=== PATIENT | male | born 1945 | race Caucasian/White ===

== ENCOUNTER 2020-05-08 06:44 | Day surgery (SDC) | payer MEDICARE ==
[2020-05-08] MEDS ORDERED: LACTATED RINGERS 1,000 ML IV ONE ×2 (07:01→08:58)
[2020-05-08 07:16] VITALS: TEMP 98.6
[2020-05-08] MEDS ORDERED: ONDANSETRON 4 MG/2 ML VIAL IVP ONE (07:34)
[2020-05-08] MEDS ORDERED: HEPARIN SODIUM,PORCINE 5,000 UNIT/ML 1 ML VIAL SQ ONE (07:35)
[2020-05-08] MEDS ORDERED: DEXAMETHASONE SOD PHOS (MDV) 100 MG/10 ML VIAL IVP ONE (07:35)
[2020-05-08] MEDS ORDERED: MIDAZOLAM 2 MG/2 ML VIAL IVP ONE (07:52)
[2020-05-08] MEDS ORDERED: PROPOFOL 10 MG/ML 20 ML VIAL IV ONE (07:56)
[2020-05-08] MEDS ORDERED: LIDOCAINE 1% INJ 10MG/ML (20 ML MDV) ONE (07:56)
[2020-05-08] MEDS ORDERED: SUCCINYLCHOLINE CHLORIDE 100 MG/5 ML SYR IV ONE (07:56)
[2020-05-08] MEDS ORDERED: ePHEDrine SULFATE/0.9% NACL/PF 50 MG/5 ML SYRINGE IV ONE (07:56)
[2020-05-08] MEDS ORDERED: ONDANSETRON 4 MG/2 ML VIAL ONE (07:56)
[2020-05-08] MEDS ORDERED: fentaNYL (PF) 50 MCG/ML 2 ML AMP ONE (07:56)
[2020-05-08] MEDS ORDERED: PHENYLEPHRINE-0.9% NACL SYG 1 MG/10 ML SYRINGE ONE (07:56)
[2020-05-08] MEDS ORDERED: ROPIVACAINE 5 MG/ML 30 ML VIAL ONE (07:56)
[2020-05-08] MEDS ORDERED: BUPIVACAINE (PF) 0.25% 30 ML VIAL SQ ONE (09:16)
--- NOTE | 2020-05-08 09:45 | P.ANPRN ---
Procedure Note - Anesthesia - Nerve Block Performed Left Transversus Abdominis Single Time Out Performed: Yes (751) Date of Procedure: 05/08/20 Procedure Start Time: 07:52 Procedure Stop Time: 07:57 Location of Patient: PreOp Indication: Acute Post-Operative Pain, Requested by Surgeon Specifically requested for management of pain by DrImelda: Estiven Amaro Sedation Type: Sedate with meaningful contact maintained Preparation: Sterile Prep Position: Supine Catheter: None Needle Types: Pajunk Needle Gauge: 21 Ultrasound used to visualize needle placement: Yes Ultrasound used to observe medication spread: Yes Injectate: 0.5% Ropivacaine (see comment for volume) (30cc) Blood Aspirated: No Pain Paresthesia on Injection Noted: No Resistance on Injection: Normal Image Stored and Saved: Yes Events: Uneventful and Well Tolerated
[2020-05-08] MEDS ORDERED: HYDROcodone/APAP 5-325MG 1 EACH TAB PO PRN (09:50)
[2020-05-08] MEDS ORDERED: NALOXONE 0.4 MG/ML 1 ML VIAL IV PRN (09:50)
--- NOTE | 2020-05-08 09:54 | P.OP ---
Date of Procedure: 05/08/20 Procedure(s) Performed: PREOPERATIVE DIAGNOSIS: Left inguinal hernia POSTOPERATIVE DIAGNOSIS: Same PROCEDURE: Repair left femoral hernia with mesh SURGEON: Prem EBL: Minimal ANESTHESIA: General COMPLICATIONS: None OPERATIVE PROCEDURE: The patient is brought and placed on the operating table in the supine position. The patient was placed under general anesthesia at that time. The patient's previous incision was re-incised using a scalpel. The subcutaneous tissues were dissected using electro cautery. A superficial vein was divided after being ligated with 3-0 silk ties. The external oblique was incised with a scalpel. This was lengthened using a Metzenbaum scissors. The spermatic cord structures were encircled with a [place] drain and dissected carefully. The patient had an indirect hernia present. There was some induration at the apex of the hernia sac within the cord. This was carefully dissected away from the surrounding cord structures. This was dissected all the way to the internal inguinal ring where it was ligated using 2 separate 0 silk stick tie sutures. The patient had weakness of the transversalis fascia at Hesselbach's triangle. A discrete defect/hernia was not seen however. I chose to use the Prolene hernia system to help strengthen this weekend transversalis layer. The medium Prolene hernia system was chosen. The inner circular portion of the mesh was placed within the pre-peritoneal space and flattened out appropriately. The outer oval portion of mesh was slit and wrapped around the spermatic cord and sutured back to itself. The mesh was then sutured to the pubic tubercle, the folding edge of the inguinal ligament, and the conjoined tendon. The external oblique was then reapproximated using a running 2-0 Vicryl suture. The subcutaneous tissues were reapproximated using interrupted 3-0 Vicryl sutures and the skin using a running 4-0 Monocryl stitch. Skin glue and sterile dressings then applied. At the end of the procedure the sponge needle and counts were all correct. DISPOSITION: Stable to recovery room
[2020-05-08 10:01] VITALS: RESP 16
[2020-05-08 11:27] VITALS: BP 131/75; PULSE 87
--- NOTE | 2020-05-11 08:09 | P.GSHP ---
History of Present Illness H&P Date: 05/05/20 Chief Complaint: Left inguinal hernia 74-year-old male seen in the office earlier this year with complaints of a bulge left groin. Mild pain at times. No nausea or vomiting. No change in bowel habits. Patient with history of previous robotic prostatectomy 10 years ago. Past Medical History Past Medical History: Cancer, Hyperlipidemia, Prostate Disorder Additional Past Medical History / Comment(s): Prostate cancer 2010. Lt inguinal hernia. History of Any Multi-Drug Resistant Organisms: None Reported Past Surgical History: Prostate Surgery, Tonsillectomy Additional Past Surgical History / Comment(s): Robotic Radical Prostate surg. Past Anesthesia/Blood Transfusion Reactions: Family History of Problems w/ Anesthesia, Motion Sickness, Postoperative Nausea & Vomiting (PONV) Additional Past Anesthesia/Blood Transfusion Reaction / Comment(s): Father had extended confusion with anesthesia. Smoking Status: Never smoker - Past Family History Brother(s) Family Medical History: Cancer Additional Family Medical History / Comment(s): Wilton cell cancer Medications and Allergies Home Medications Medication Instructions Recorded Confirmed Type Atorvastatin [Lipitor] 20 mg PO DAILY 05/04/20 05/08/20 History Allergies Allergy/AdvReac Type Severity Reaction Status Date / Time No Known Allergies Allergy Verified 05/08/20 07:07 Surgical - Exam Physical exam: General: Well-developed, well-nourished HEENT: Normocephalic, sclerae nonicteric Abdomen: Nontender, nondistended, moderate sized reducible left inguinal hernia, possible small reducible right hernia, small reducible umbilical hernia Extremities: No edema Neuro: Alert and oriented Assessment and Plan (1) Left inguinal hernia Narrative/Plan: 74-year-old male with symptomatic moderate sized left inguinal hernia. Options reviewed. Both laparoscopic and open approaches were discussed. Given the previous preperitoneal dissection will proceed with open repair left inguinal hernia with mesh at this time. Risks of bleeding, infection, recurrence, bladder and bowel injury, numbness, nerve injury were discussed with the patient. The patient understands and wishes to proceed. Status: Acute Code(s): K40.90 - UNIL INGUINAL HERNIA, W/O OBST OR GANGR, NOT SPCF RECUR SNOMED Code(s): 479034105
== END 2020-05-08 11:27 | disposition home or self-care (01) ==
LOC: OR 06:44
PROVIDERS: ATTEND Surgery
DX: K40.90 Unilateral inguinal hernia, without obstruction or gangrene, not specified as recurrent (principal); E78.5 Hyperlipidemia, unspecified; Z79.899 Other long term (current) drug therapy
CPT/HCPCS: 49505; 64486; 88302; C1781; J2250; J1644; J0690; J2405; J2001; J3010; J1100; J2795; J2370; J0330; J2704

== ENCOUNTER → 2021-04-10 | Outpatient (CLI) | payer MEDICARE ==
[2021-04-10 11:08] LABS: HCT 41.5 % (39.0-53.0); HGB 14.2 gm/dL (13.0-17.5); MCH 32.2 pg (25.0-35.0); MCHC 34.2 g/dL (31.0-37.0); MCV 94.1 fL (80.0-100.0); Mean Platelet Volume 7.3; Platelet Count 296 k/uL (150-450); RBC 4.42 m/uL (4.30-5.90); RDW 13.3 % (11.5-15.5); WBC 7.2 k/uL (3.8-10.6)
[2021-04-10 11:35] LABS: Partial Thromboplastin Time 23.6 sec (22.0-30.0); Prothrombin Time 10.6 sec (9.0-12.0)
[2021-04-10 11:41] LABS: Appearance,Urine Clear (Clear); Bilirubin,Urine Negative (Negative); Blood,Urine Negative (Negative); Color,Urine Yellow; Glucose,Urine (UA) Negative (Negative); Ketones,Urine Negative (Negative); Leukocyte Esterase,Urine Trace (Negative); Mucus,Urine Rare /hpf; Nitrite,Urine Negative (Negative); PH, Urine 6.5 (5.0-8.0); Protein,Urine Negative (Negative); RBC,Urine <1 /hpf (0-5); Specific Gravity,Urine 1.024 (1.001-1.035); Urobilinogen,Urine <2.0 mg/dL (<2.0); WBC,Urine <1 /hpf (0-5)
[2021-04-10 12:23] LABS: Albumin 4.8 g/dL (3.5-5.0); Calcium 10.6 mg/dL (8.4-10.2); Potassium 5.4 mmol/L (3.5-5.1); Total Bilirubin 0.6 mg/dL (0.2-1.3); Total Protein 7.2 g/dL (6.3-8.2)
== END | disposition home or self-care (01) ==
LOC: LABPAT 10:17
PROVIDERS: ATTEND Orthopaedic Surgery Sports Medicine
DX: Z01.810 Encounter for preprocedural cardiovascular examination (principal); Z01.812 Encounter for preprocedural laboratory examination
CPT/HCPCS: 36415; 80053; 81001; 85027; 85610; 85730; 87070

== ENCOUNTER 2021-04-26 05:31 | Day surgery (SDC) | payer MEDICARE ==
[2021-04-23 16:05] VITALS: BMI 25.7
[~2021-04-26 05:31] MED LIST: ACETAMINOPHEN TAB 500 MG TAB PO PRN; GABAPENTIN 300 MG CAP PO PRN; LACTATED RINGERS 1,000 ML IV SCH; MELOXICAM 7.5 MG TAB PO PRN; ONDANSETRON 4 MG/2 ML VIAL IVP PRN; ROPIVACAINE/EPI/CLONIDINE/KET 50 ML SYRINGE MISCELLANE PRN; TRANEXAMIC ACID 1,000 MG in SODIUM CHLORIDE 0.9% 100 ML IVPB PRN
[2021-04-26] MEDS ORDERED: LACTATED RINGERS 1,000 ML IV ONE ×2 (05:54→09:07)
[2021-04-26] MEDS ORDERED: DEXAMETHASONE SOD PHOSPHATE 4 MG/ML 1 ML VIAL IVP ONE (06:04)
[2021-04-26] MEDS ORDERED: MIDAZOLAM 2 MG/2 ML VIAL IV PRN (06:30)
[2021-04-26] MEDS ORDERED: MIDAZOLAM 2 MG/2 ML VIAL IVP ONE (06:30)
[2021-04-26] MEDS ORDERED: HYDROmorphone 0.5 MG/0.5 ML SYRINGE IVP PRN ×3 (07:00→09:45)
--- NOTE | 2021-04-26 07:04 | P.ANPRN ---
Procedure Note - Anesthesia - Nerve Block Performed Left Adductor Canal Infusion Time Out Performed: Yes Date of Procedure: 04/26/21 Procedure Start Time: 08:33 Procedure Stop Time: 06:40 Location of Patient: PreOp Indication: Acute Post-Operative Pain, Requested by Surgeon Sedation Type: Sedate with meaningful contact maintained Preparation: Sterile Prep Position: Supine Catheter: Indwelling Needle Types: Pajunk Needle Gauge: 21 Ultrasound used to visualize needle placement: Yes Ultrasound used to observe medication spread: Yes Blood Aspirated: No Pain Paresthesia on Injection Noted: No Resistance on Injection: Normal Image Stored and Saved: Yes Events: Uneventful and Well Tolerated (ropi .5% 20cc)
--- NOTE | 2021-04-26 07:05 | P.ANPRN ---
Procedure Note - Anesthesia - Nerve Block Performed Left iPack Single Time Out Performed: Yes Date of Procedure: 04/26/21 Procedure Start Time: 06:41 Procedure Stop Time: 06:46 Location of Patient: PreOp Indication: Acute Post-Operative Pain, Requested by Surgeon Sedation Type: Sedate with meaningful contact maintained Preparation: Sterile Prep Position: Supine Needle Types: Pajunk Needle Gauge: 21 Ultrasound used to visualize needle placement: Yes Ultrasound used to observe medication spread: Yes Blood Aspirated: No Pain Paresthesia on Injection Noted: No Resistance on Injection: Normal Image Stored and Saved: Yes Events: Uneventful and Well Tolerated (Ropivacaine 0.5% 25 mL plus dexamethasone 4 mg)
[2021-04-26] MEDS ORDERED: SODIUM CHLORIDE 0.9% 100 ML BAG ONE (07:35)
[2021-04-26] MEDS ORDERED: PROPOFOL 10 MG/ML 20 ML VIAL IV ONE (07:35)
[2021-04-26] MEDS ORDERED: MIDAZOLAM 2 MG/2 ML VIAL ONE (07:35)
[2021-04-26] MEDS ORDERED: fentaNYL (PF) 50 MCG/ML 2 ML AMP ONE (07:35)
[2021-04-26] MEDS ORDERED: PHENYLEPHRINE-0.9% NACL SYG 1,000 MCG/10 ML SYRINGE ONE (07:35)
[2021-04-26] MEDS ORDERED: TRANEXAMIC ACID 1,000 MG/10 ML VIAL ONE (07:35)
[2021-04-26] MEDS ORDERED: ROPIVACAINE 5 MG/ML 30 ML VIAL ONE (07:35)
[2021-04-26] MEDS ORDERED: DEXAMETHASONE SOD PHOSPHATE 4 MG/ML 1 ML VIAL ONE (07:35)
[2021-04-26] MEDS ORDERED: ceFAZolin 3,000 MG in SODIUM CHLORIDE 0.9% IRRIGATIO 3,000 ML IRRIGATION ONE (08:08)
[2021-04-26] MEDS ORDERED: ROPIVACAINE 0.2%-NS ON-Q PUMP 1,090 MG, EMPTY PAIN BALL 1 EACH MISCELLANE PRN (09:34)
[2021-04-26] MEDS ORDERED: bisacodyL 10 MG SUPP RECTAL PRN (09:45)
[2021-04-26] MEDS ORDERED: traMADol 50 MG TAB PO PRN (09:45)
[2021-04-26] MEDS ORDERED: diazePAM 5 MG TAB PO PRN (09:45)
[2021-04-26] MEDS ORDERED: HYDROmorphone 0.2 MG/1 ML SYRINGE IVP PRN (09:45)
[2021-04-26] MEDS ORDERED: MAGNESIUM HYDROXIDE 2,400 MG/10 ML CUP PO PRN (09:45)
[2021-04-26] MEDS ORDERED: TEMAZEPAM 15 MG CAP PO PRN (09:45)
[2021-04-26] MEDS ORDERED: NA PHOS,M-B/NA PHOS,DI-BA 133 ML ENEMA RECTAL PRN (09:45)
[2021-04-26] MEDS ORDERED: NALOXONE 0.4 MG/ML 1 ML VIAL IV PRN (09:45)
[2021-04-26] MEDS ORDERED: ONDANSETRON 4 MG/2 ML VIAL IVP PRN (09:45)
[2021-04-26] MEDS ORDERED: ACETAMINOPHEN TAB 325 MG TAB PO PRN (09:45)
--- NOTE | 2021-04-26 10:18 | XR ---
EXAMINATION TYPE: XR knee limited LT DATE OF EXAM: 04/26/2021 CLINICAL HISTORY: Postoperative evaluation Two views of the left knee are submitted. Identified are changes of total knee arthroplasty with fem oral and tibial components appearing well seated. Postsurgical soft tissue changes are noted. Align ment is anatomic.
--- NOTE | 2021-04-26 10:28 | OP ---
OPERATIVE REPORT DATE OF PROCEDURE: 04/26/2021 SURGEON: Hank Chicas M.D. ASSISTANTS: 1. Guido Stallings D.O. 2. Emiliano Marie PA-C. PREOPERATIVE DIAGNOSIS: Left knee osteoarthrosis. POSTOPERATIVE DIAGNOSIS: Left knee osteoarthrosis. OPERATION: Left total knee arthroplasty. ANESTHESIA: Spinal with sedation. ESTIMATED BLOOD LOSS: 100 mL. TOURNIQUET: Tourniquet time was 54 minutes at 250 mmHg. COMPLICATIONS: None apparent. DRAINS: None. DISPOSITION: Post-Anesthesia Care Unit. Mr. Villasenor is a 75-year-old male with longstanding history of left knee pain. History and physical examination are consistent with advanced left knee osteoarthrosis. He has been through significant nonoperative management up to this point. Further treatment options were discussed and he has decided to go forward with left total knee arthroplasty. The risks of the procedure were discussed with him in detail. These risks included but were not limited to risk of infection, nerve damage, bleeding, pain, and a small risk of deep vein thrombosis which could lead to fatal pulmonary embolism. There is also risk of loosening of the implant which could require revision operation. The patient understands these risks. All of his questions were answered to his satisfaction. Appropriate informed consent was obtained. DESCRIPTION OF THE PROCEDURE: The patient was identified in the preoperative holding area. Surgical site was marked by both the patient and myself. He was given 2 grams of Ancef IV for prophylactic purposes. He was then transferred to the operative suite. He was placed supine on the operating room table. Spinal anesthetic was then administered and dosed per the anesthesia department without apparent complication. Examination under anesthesia was then performed. The patient was 2-3 degrees shy of full extension. He had 100 degrees of flexion, and the medial collateral ligament, lateral collateral ligament and posterior cruciate ligaments were stable. Tourniquet was then placed high on the left upper thigh, well padded in preparation for surgery. The patient's left lower extremity was then prepped and draped in usual sterile fashion. Standard surgical pause was undertaken to ensure that we were operating on the correct site and that appropriate preoperative antibiotics had been given. All staff in the room were in agreement and we proceeded. The outlines of the patella were marked with a surgical pen. A planned 12 cm vertical incision centered over the patella was marked with a surgical pen. The leg was then exsanguinated with an Esmarch dressing. The knee was then flexed and the tourniquet was inflated to 250 mmHg. The total tourniquet time for the procedure was 54 minutes. Incision was then made with a 10 blade scalpel. Dissection was carried down sharply to the overlying fascia. Great care was taken to minimize the skin flaps. The knee was then exposed using a standard medial parapatellar approach. A small cuff of quadriceps tendon was then left for suturing. He was in a bit of varus preoperatively. A standard medial release was then made. The superficial medial collateral ligament was dissected off the bone around to the posterior aspect of the proximal tibia. The medial meniscus was then excised as well. The lateral meniscus was also released anteriorly. The leg was then externally rotated. The patella was everted. The knee was flexed. Retractors were then placed to protect the collateral ligaments. I then proceeded to remove the infrapatellar fat pad. This was excised sharply tangentially with fibers of the patellar tendon. I then proceeded to remove the peripheral osteophytes. This was done with a rongeur. I then proceeded with the distal femoral resection. He did have near-full extension. A planned 9 mm resection was then done. Femoral canal was then entered in the midline of the femur approximately 10 mm anterior to the origin of the posterior cruciate ligament. The chanda was then advanced down the center of the femur and placed intramedullary. Based on the preoperative radiographs, the angle between the anatomic and mechanical axis of the femur was approximately 4-5 degrees. The valgus angle of the distal femoral cutting guide was then set at 4 degrees for the left knee. The distal femoral cutting guide was then advanced over the intramedullary chanda. This was seated firmly against the femur. Then, as mentioned, I planned to take 9 mm off the distal femur. The cutting block was then secured onto the femur with pins. The jig was removed. The distal femoral cut was made through the slot of the block. The pins were then removed and the distal femoral cutting was removed. The accuracy of the distal femoral cuts was checked with 2 flat bars. I then proceeded with femoral sizing. The posterior referencing sizing guide was held firmly against the resected distal surface of the femur. The posterior condyles were resting on the posterior plane of the guide. The sizing guide was then placed onto the anterior femur. The size was measured as a size 10. I then assessed for femoral rotation. The plan was for 3 degrees of external rotation. Three degrees of external rotation was placed onto the jig. These holes were then marked. I then confirmed the rotation by 3 separate methods. This was done using epicondylar axis as well as [place] line and posterior referencing. It was deemed that the external rotation was proper. I then went forward with placing the femoral cutting block. This was placed over the previously placed pin holes. The [place] wing was then placed onto the anterior slots to ensure that we would not notch the anterior femur with the anterior femoral cut. I then proceeded with the anterior femoral cut. This was flush with the anterior cortex of the femur. The posterior cuts were made followed by the anterior chamfer cut, then the posterior chamfer cut. The cutting block was then removed. Throughout the resection, the collateral ligaments were protected with retractors. I then placed a trial size 10 femur. It fit very nicely medial to lateral and fit flush with the distal end of the femur. The drill holes were then made. I then proceed with the tibial cut. I planned for a cruciate-retaining knee. The guide was placed and set for varus, valgus and for slope. The height was set for an approximate 2 mm resection from the medial tibial plateau, which was the lower side. I was happy with the alignment and amount of resection. The cutting block was then pinned to the proximal tibia. The alignment chanda was removed. Proximal tibia was resected with a reciprocating saw. Again, this was done with retractors protecting the collateral ligaments as well as the posterior cruciate ligament. I then proceeded to evaluate the flexion and extension gaps. A 10 mm block was then placed. The flexion and extension gaps were equal. I then proceeded with resection of the posterior osteophytes. He had very minimal posterior osteophytes. This was done using a curved osteotome. This resected the posterior osteophytes, and posterior capsule stripping was done off the posterior aspect of the femur at this time. The osteophytes were then removed. I then proceeded with resection of the patella. The thickness of the patella was measured using the caliper. The thickness was 24 mm. The thickness of the anticipated patellar dome was taken into account. The resection was then performed and confirmed to be equal in 4 quadrants using a caliper. Approximately 14 mm of bone remained after resection. A 32 x 8.5 mm standard patellar trial was then placed. The holes were drilled and the trial was then placed. I then proceeded with sizing the tibial plate. A size F tibial plate fit very nicely. I then placed the trial femur, the tibial tray and the patellar button. A 10 mm trial tibial insert was also placed. The components fit very nicely. He had full extension and flexion. The extension and flexion gaps were equal and stable to both varus and valgus stress. The patella tracked appropriately. The tibial tray rotation was then marked with a Bovie. This was externally rotated properly. I then proceeded with tibial preparation. First femoral holes and removed the femoral component. The tibial tray was then set for proper external rotation as well as mediolateral placement onto the tibia. This was then pinned into place. I then proceeded with punching the keel. I then decided to proceed with cementing of all of our components. The knee was thoroughly irrigated with sterile saline solution via pulse lavage. The lateral geniculate artery was identified and cauterized. All blood was removed from around the bone of the tibia, femur and patella with pulse lavage. I then proceeded with cementing. Two packs of antibiotic bone cement were prepared on the back table by the surgical garment inspector. I then proceeded with cementing the tibia first. The cement was impacted into the keel as well as deeply seated in the bone. A second coat of cement was then placed. The tibia was then impacted into place. Excess cement was removed with [place]'s and jokers. I then proceeded with cementing the femoral component. The femoral component was also cemented using standard technique. Excess cement was removed. A 10 mm trial insert was then placed into the knee. It was brought into full extension with a constant axial load placed until the cement had hardened. The patellar component was then cemented. This was held firmly with a compressive device until the cement had dried. When the cement had dried, the knee was taken out of extension. All excess cement was removed from around the prosthesis. I then trialed the knee with a 10 mm insert. The flexion and extension gaps were appropriate. I then trialed with a 12 mm insert. Flexion and extension gaps felt much better. The knee was stable with a 12 mm insert. It came into full extension. I decided to go forward with a 12 mm cross-linked cruciate-retaining tibial insert. Polyethylene was then placed onto the tibial tray and locked into place. The knee was then reduced. The knee was again further irrigated with sterile saline solution with antibiotic added. The tourniquet was then deflated. Total tourniquet time for the procedure was 54 minutes at 250 mmHg. Final components were a Jann Persona size 10 cruciate-retaining femoral component, a size F tibial tray, a 12 mm medial-congruent cruciate-retaining polyethylene insert, and a 32 x 8.5 mm patella. I then proceeded with closure. Again, the knee was thoroughly irrigated. The quadriceps tendon and the medial retinaculum were reapproximated with #2 Ethibond suture. The extensor mechanism was then closed with a running #2 [place]ill suture. Subcutaneous tissues were closed with 2-0 Vicryl interrupted suture. The skin was closed with a running 3-0 Quill suture. Dermabond was applied to the incision. Sterile compressive dressing was then applied. All sponge and needle counts were deemed correct prior to closure. The patient tolerated the procedure without apparent complication. He was transferred to the recovery room in stable condition. MMODL / IJN: [id number] /
[2021-04-26] MEDS: HYDROcodone/APAP 5-325MG 1 EACH TAB PO PRN (14:26)
[2021-04-26] MEDS: ASPIRIN 81 MG PO SCH (20:37)
[2021-04-26] MEDS: LOSARTAN 50 MG TAB PO SCH (20:37)
[2021-04-26] MEDS: HYDROcodone/APAP 10-325MG 1 EACH TAB PO PRN (20:38)
[2021-04-26] MEDS ORDERED: polyethylene glycoL 3350 17 GM POWD.PACK PO SCH (21:00)
[2021-04-26] MEDS ORDERED: SENNOSIDES-DOCUSATE SODIUM 1 EACH TAB PO SCH (21:00)
[2021-04-26] MEDS: LACTATED RINGERS 1,000 ML IV SCH ×2 (21:16→21:17)
[2021-04-26 22:32] VITALS: RESP 16
[2021-04-27] MEDS: HYDROcodone/APAP 5-325MG 1 EACH TAB PO PRN (03:22)
[2021-04-27] MEDS: LACTATED RINGERS 1,000 ML IV SCH (04:47)
--- NOTE | 2021-04-27 06:30 | P.PN ---
Progress Note - Text Progress Note Date: 04/27/21 (620) Anesthesiology Postop day 1 status post total knee arthroplasty with adductor canal catheter. Patient doing well. VAS 3 out of 10. Gross strength intact in lower extremity. Afebrile. . Catheter site intact. Heart regular rate Lungs nonlabored Abdomen nondistended Assessment: Postop day 1 status post total knee arthroplasty with adductor canal catheter Plan: All questions answered. Maintain catheter 2 more days with patient removal at home. Instructions were given at discharge.
--- NOTE | 2021-04-27 08:31 | P.CONS ---
History of Present Illness - Reason for Consult Consult date: 04/26/21 Medical management Requesting physician: Hank Chicas - Chief Complaint Post left total knee arthroplasty per - History of Present Illness HISTORY OF PRESENT ILLNESS: This is a 75-year-old male with a previous medical history significant for hypertension and hypertensive cardio vascular disease, hyperlipidemia, prostate cancer status post prostatectomy, osteoarthritis, patient underwent left total knee arthroplasty that was done successfully by Dr. Chicas and I was asked to see the patient for medical management, patient is laying down in bed in no apparent distress he denies any chest pain or shortness breath, he has no abdominal pain, nausea vomiting or diarrhea REVIEW OF SYSTEMS: Constitutional: No documented fever, no chills, no night sweats. No weight change. No weakness, fatigue or lethargy. No daytime sleepiness. HEENT: No headache. No blurred vision or double vision, no loss of vision. No loss of Hearing, no ringing in the ears, no dizziness. No nasal drainage or congestion. No epistaxis. No sore throat. Lungs: No shortness of breath, no cough, no sputum production. No wheezing. Reports dyspnea with activity. Cardiovascular: No chest pain, no lower extremity edema. No palpitations. No paroxysmal nocturnal dyspnea. No orthopnea. No lightheadedness or dizziness. No syncopal episodes. Abdominal: Reports abdominal pain. No nausea, vomiting. No diarrhea. No constipation. No bloody or tarry stools reports loss of appetite. Genitourinary: No dysuria, increased frequency, urgency. No urinary retention. Musculoskeletal: No myalgias. No muscle weakness, no gait dysfunction, no frequent falls. No back pain. No neck pain. Left knee pain. Integumentary: Left knee is wrapped, no lesions. No rash or pruritus. No unusual bruising. No change in hair or nails. Neurologic: No aphasia. No facial droop. No change in mentation. No head injury. No headache. No paralysis. No paresthesia. Psychiatric: No depression. No anxiety. No mood swings. Endocrine: No abnormal blood sugars. No weight change. PAST MEDICAL HISTORY: Hypertension and hypertensive cardiovascular disease. Hyperlipidemia. Prostate cancer. Osteoarthritis. PAST SURGICAL HISTORY: Prostatectomy 2010. Left inguinal hernia repair Tonsillectomy. SOCIAL HISTORY: Patient is a lifelong nonsmoker he denies any drug use or abuse, he drinks alcohol maybe 2-4 times a month. FAMILY HISTORY: Father at age of 89 from congestive heart failure, mother at age of 96 from old age and had hypertension patient had 5 brothers one with Joppa cell cancer and 2 of them with hypertension patient has one sister with cervical cancer he has one son and one daughter with no health issues PHYSICAL EXAMINATION: General: 75-year-old male laying down in bed in no apparent distress. HEENT: Head is atraumatic, normocephalic, pupils were equal round reactive to light and recommendation, extraocular muscle movement were intact, sclera nonicteric, conjunctivae were pale, mucous membranes of the mouth are somewhat dry. Neck: Supple, no JVP, normal carotid upstroke bilaterally, no lymphadenopathy. Chest: Decreased breath sounds at the bases, few rhonchi, no expiratory wheezes, no chest wall tenderness, no intercostal retractions. Heart: First heart sound is normal, second heart sounds normal Abdomen: Soft, nontender, nondistended, positive bowel sounds, there is no hepatosplenomegaly. Extremities: There is no edema no calf tenderness DP +2 bilaterally, left knee is wrapped with an Roberto wrap Neurologic examination: Patient is awake alert and oriented X 3, cranial nerves II-12 appear grossly intact, muscle power were 5 out of 5 in upper extremities and 5 out of 5 in bilateral lower extremities, deep tendon reflexes normal bilaterally. ASSESSMENT AND PLAN: 1. Post operative day #0 status post left total knee arthroplasty. Patient was instructed to use the incentive spirometer to reduce the incidence of atelec tasis and hospital-acquired pneumonia, continue current pain management as outlined by orthopedic surgery, continue DVT prophylaxis, increase activity, continue with On-Q pump , physical therapy evaluation tomorrow morning likely will be discharged home in the next 24 hours. 2. Hypertension and hypertensive cardiovascular disease. Continue patient on losartan 50 mg orally once every day, monitor the patient blood pressure very closely. 3. Hyperlipidemia. Continue patient on atorvastatin 20 mg orally once every day. 4. Osteoarthritis. Continue current pain management. 5. Prostate cancer. Currently in remission . 6. DVT prophylaxis. Continue patient on aspirin 325 mg orally twice every day, early ambulation, continue with physical therapy as indicated. 7. Thank you Dr. Chicas for allowing me to participate in the care of your patient we will follow the patient along with you. Past Medical History Past Medical History: Cancer, Hyperlipidemia, Hypertension, Osteoarthritis (OA), Prostate Disorder Additional Past Medical History / Comment(s): Prostate cancer 2010. History of Any Multi-Drug Resistant Organisms: None Reported Past Surgical History: Hernia Repair, Prostate Surgery, Tonsillectomy Additional Past Surgical History / Comment(s): Robotic Radical Prostate surg. COLONOSCOPY Past Anesthesia/Blood Transfusion Reactions: Family History of Problems w/ Anesthesia, Motion Sickness, Postoperative Nausea & Vomiting (PONV) Additional Past Anesthesia/Blood Transfusion Reaction / Comm: Father had extended confusion with anesthesia. Past Psychological History: No Psychological Hx Reported Smoking Status: Never smoker Past Alcohol Use History: Occasional Past Drug Use History: None Reported - Past Family History Brother(s) Family Medical History: Cancer Additional Family Medical History / Comment(s): Joppa cell cancer Medications and Allergies Home Medications Medication Instructions Recorded Confirmed Type Atorvastatin [Lipitor] 20 mg PO DAILY 05/04/20 04/26/21 History Losartan Potassium 50 mg PO QAM 04/26/21 04/26/21 History Allergies Allergy/AdvReac Type Severity Reaction Status Date / Time No Known Allergies Allergy Verified 04/23/21 15:48 Physical Exam Vitals: Vital Signs Temp Pulse Pulse Resp BP BP Pulse Ox 04/26/21 14:17 98.4 F 99 18 142/86 97 04/26/21 12:30 75 16 120/67 96 04/26/21 12:00 68 16 118/72 94 L 04/26/21 11:30 72 16 130/81 94 L 04/26/21 11:15 71 16 129/80 96 04/26/21 11:00 74 16 127/84 94 L 04/26/21 10:45 66 16 123/76 93 L 04/26/21 10:30 64 16 123/76 93 L 04/26/21 10:15 63 16 123/74 94 L 04/26/21 10:00 67 16 124/79 94 L 04/26/21 09:45 68 16 118/76 97 04/26/21 09:30 97.4 F L 74 16 115/76 94 L 04/26/21 06:54 81 18 143/84 98 04/26/21 06:05 97.8 F 78 18 160/79 98 Intake and Output 04/26/21 04/26/21 04/26/21 06:59 14:59 22:59 Intake Total 200 1051 400 Output Total 100 Balance 200 951 400 Intake: IV 200 1051 Intake, IV Titration 400 Amount Lactated Ringers 1,000 ml 350 @ 100 mls/hr IV .Q10H PATTIE Rx#:[id number] ceFAZolin 2 gm In Sodium 50 Chloride 0.9% 50 ml @ 100 mls/hr IVPB Q8HR PATTIE Rx# :[id number] Output: Estimated Blood Loss 100 Other: # Voids 1 Weight 87.7 kg 87.7 kg Results CBC & Chem 7: 04/26/21 05:58 Labs: Abnormal Lab Results - Last 24 Hours (Table) 04/26/21 Range/Units 05:58 Potassium 5.2 H (3.5-5.1) mmol/L
[2021-04-27] MEDS: HYDROcodone/APAP 10-325MG 1 EACH TAB PO PRN (08:35)
[2021-04-27] MEDS: ASPIRIN 81 MG PO SCH (08:35)
[2021-04-27] MEDS: LOSARTAN 50 MG TAB PO SCH (08:36)
[2021-04-27] MEDS ORDERED: ATORVASTATIN 20 MG TAB PO SCH (09:00)
[2021-04-27 09:22] VITALS: BP 153/90; PULSE 82; TEMP 98.1
[2021-04-27 11:30] LABS: Basophils # (A) 0.01 X 10*3/uL (0.00-0.10); Basophils % (A) 0.1 %; Eosinophils # (A) 0 X 10*3/uL (0.04-0.35); Eosinophils % (A) 0 %; HCT 36.6 % (39.6-50.0); HGB 11.8 g/dL (13.0-17.0); Lymphocytes # (A) 1.89 X 10*3/uL (0.90-5.00); Lymphocytes % (A) 15.8 %; MCH 30.4 pg (27.0-32.0); MCHC 32.2 g/dL (32.0-37.0); MCV 94.3 fL (80.0-97.0); Mean Platelet Volume 9.7 fL (9.5-12.2); Monocytes # (A) 1.01 X 10*3/uL (0.20-1.00); Monocytes % (A) 8.4 %; Neutrophils # (A) 9.01 X 10*3/uL (1.80-7.70); Neutrophils % (A) 75.3 %; Platelet Count 265 X 10*3/uL (140-440); RBC 3.88 X 10*6/uL (4.40-5.60); RDW 13.8 % (11.5-14.5); WBC 11.97 X 10*3/uL (4.50-10.00)
--- NOTE | 2021-04-27 11:31 | P.DS ---
Providers Expected date of discharge: 04/27/21 Attending physician: Hank Chicas Consults: 04/26/21 09:45 Consult Physician Routine Consulting Provider: Celestine Oakes Consult Reason/Comments: post op medical management Do you want consulting provider notified?: Yes Primary care physician: Celestine Oakes - Discharge Diagnosis(es) (1) Status post total left knee replacement Patient was admitted to the OR on 04/26/21 to undergo a left total knee arthroplasty. He had failed conservative measures as an outpatient and desired to proceed with elective surgery after given informed consent. He underwent the above procedure which she tolerated well without complication. Postoperative hospital course has remained without complication. On day of discharge he is afebrile, vital signs stable, labs within acceptable ranges, tolerating by mouth meds and diet, voiding without difficulty, positive flatus, denies abdominal pain or calf pain, pain is controlled on oral pain medication and has no new complaints. Wound is benign, neurovascular status is intact, calf is soft and nontender, abdomen soft and nontender. Review of systems is negative for numbness, tingling, fever, chills, chest pain, shortness of breath, nausea, vomiting, dizziness, headaches, slurred speech or other. Current Visit: Yes Status: Acute Priority: Medium Procedures: Left TKA Patient Condition at Discharge: Good Plan - Discharge Summary Discharge Rx Participant: Yes New Discharge Prescriptions: New Aspirin [Adult Low Dose Aspirin EC] 81 mg PO BID #60 tablet. Doclaneyte [Colace] 100 mg PO BID #60 capsule HYDROcodone/APAP 7.5-325MG [Moss 7.5-325] 1 - 2 each PO Q6HR PRN #42 tab PRN Reason: Pain No Action Atorvastatin [Lipitor] 20 mg PO DAILY Losartan Potassium 50 mg PO QAM Discharge Medication List Atorvastatin [Lipitor] 20 mg PO DAILY 05/04/20 [History] Losartan Potassium 50 mg PO QAM 04/26/21 [History] Aspirin [Adult Low Dose Aspirin EC] 81 mg PO BID #60 tablet. 04/27/21 [Rx] Docusate [Colace] 100 mg PO BID #60 capsule 04/27/21 [Rx] HYDROcodone/APAP 7.5-325MG [Moss 7.5-325] 1 - 2 each PO Q6HR PRN #42 tab 04/27/21 [Rx] Follow up Appointment(s)/Referral(s): [facility], [NON-STAFF] - As Needed Hank Chicas MD [STAFF PHYSICIAN] - 10 Days Activity/Diet/Wound Care/Special Instructions: Keep wound clean and dry Take meds as directed Follow-up with Dr. Chicas in office Weight bear as tolerated May shower in 3 days if no bleeding Discharge Disposition: HOME WITH HOME HEALTH SERVICES
[2021-04-27] MEDS ORDERED: MULTIVITAMINS, THERA 1 EACH TAB PO SCH (12:00)
== END 2021-04-27 12:31 | disposition home health service (06) ==
LOC: OR 05:31 → 4SSUR 13:44 → OR 04-27 12:31
PROVIDERS: ATTEND Orthopaedic Surgery Sports Medicine
DX: M17.12 Unilateral primary osteoarthritis, left knee (principal); I11.9 Hypertensive heart disease without heart failure; E78.5 Hyperlipidemia, unspecified; Z85.46 Personal history of malignant neoplasm of prostate; Z79.899 Other long term (current) drug therapy
CPT/HCPCS: 27447; 97161; 64999; 64448; 76942; 84132; 85025; 88300; 73560; C1776; C1713; J2250; J1100; J0690 ×2; J2405; J3010; J2795 ×2; J2370; J2704